=== PATIENT | male | born 1995 | race Hispanic/Latino ===

== ENCOUNTER 2021-03-15 12:42 | Emergency (ER) | payer OTHER, SELFPAY ==
[2021-03-15] VITALS (7 sets, daily range): BP systolic 112–147; BP diastolic 64–83; PULSE 58–71; RESP 14–19; TEMP 36.7; O2SAT 99–100
--- NOTE | 2021-03-15 12:55 | DI.RAD.S_ITS ---
PROCEDURE: XR CHEST 1V INDICATIONS: chest pain TECHNIQUE: One view of the chest was acquired. COMPARISON: None. FINDINGS: Surgical changes and devices: None. Lungs and pleura: Lungs are clear. No pleural effusions or pneumothorax. Mediastinum: Mediastinal contours appear normal. Heart size is normal. Bones and chest wall: No suspicious bony lesions. Overlying soft tissues appear unremarkable. IMPRESSION: No acute pulmonary process. Dictated by: Yarelis Marcano M.D. on 03/15/2021 at 13:27 Approved by: Yarelis Marcano M.D. on 03/15/2021 at 13:27
--- NOTE | 2021-03-15 12:57 | ED.CHESTPAIN ---
HPI - Chest Pain <PARISH Prater - Last Filed: 03/15/21 18:16> General Chief Complaint: Chest Pain Stated Complaint: intermittent left chest pain x2 days Time Seen by Provider: 03/15/21 12:47 Source: patient Mode of arrival: Ambulatory Limitations: no limitations History of Present Illness HPI narrative: The patient is a 25-year-old male current smoker who presents with a chief complaint of left-sided chest pain on and off for the past 2 days. He states this started yesterday after he drank 2 red Bulls. Nothing provokes or alleviates the pain. He has tried some antacid medication. He denies any abdominal pain nausea vomiting or diarrhea. Denies any lightheadedness or dizziness. Denies any shortness of breath, cough or congestion, denies any known COVID exposure. He states that he has not had his COVID vaccinations, though notes that the rest of his family does. He states that the pain in the left side of his chest is shooting and stabbing. He does not have a primary care provider. Related Data Allergies Allergy/AdvReac Type Severity Reaction Status Date / Time aspirin Allergy Verified 03/15/21 13:28 Review of Systems <PARISH Prater - Last Filed: 03/15/21 18:16> Review of Systems Narrative: GENERAL: Denies chills, fatigue, malaise, fever, sweats. HEENT: Denies sinus pain, ear pain, sore throat, difficulty swallowing, dizziness. RESPIRATORY: See HPI CARDIOVASCULAR: See HPI GASTROINTESTINAL: Denies nausea, vomiting, abdominal pain, diarrhea, constipation, melena. : Denies dysuria, frequency, incontinence, hematuria, urinary retention. MUSCULOSKELETAL: denies weakness, joint pain, or bony pain SKIN: Denies rash, skin lesions, or other NEUROLOGIC: Denies weakness, headache, numbness, change in speech, confusion, seizures, incoordination. PSYCHIATRIC: No concerning psychosocial issues. 12 point review of systems is negative except for those stated above Patient History <PARISH Prater - Last Filed: 03/15/21 18:16> Social History Smoking Status: Current every day smoker Exam <PARISH Prater - Last Filed: 03/15/21 18:16> Narrative Exam Narrative: GENERAL: This is a well-nourished, well-developed patient, in no acute distress HEAD: Atraumatic. Normocephalic. No temporal or scalp tenderness. EYES: Pupils equal round and reactive. Extraocular motions intact. No scleral icterus. No injection or drainage. ENT: Nose without bleeding, purulent drainage or septal hematoma. Wearing a mask. Airway patent. NECK: Trachea midline. No JVD or lymphadenopathy. Supple, nontender, no meningeal signs. CARDIOVASCULAR: Regular rate and rhythm. No pain to chest wall palpation RESPIRATORY: Clear to auscultation. Breath sounds equal bilaterally. No wheezes, rales, or rhonchi. No cough. No increased respiratory effort. No accessory muscle use. GASTROINTESTINAL: Abdomen soft, non-tender, nondistended. No hepato-splenomegaly, or palpable masses. No guarding. EXTREMITIES: No clubbing, cyanosis, or edema. No joint tenderness, effusion, or edema noted. BACK: Nontender without deformity or crepitance. No flank tenderness. NEURO: AOx3. SKIN: No rash or erythema on visible skin. No rash on left side of chest wall. Initial Vital Signs Initial Vital Signs: Vital Signs Pulse Rate 66 03/15/21 12:51 Pulse Oximetry 100 03/15/21 12:51 <Saturnino Fortune DO - Last Filed: 03/15/21 18:19> Initial Vital Signs Initial Vital Signs: Vital Signs Pulse Rate 66 03/15/21 12:51 Pulse Oximetry 100 03/15/21 12:51 Scores <ANA Prater - Last Filed: 03/15/21 18:16> GCS Aromas coma scale eye opening: Spontaneous Sylvester coma scale verbal response: Orientated Sylvester coma scale motor response: Obey commands Sylvester coma scale total score: 15 HEART Score Heart Score history: Slightly Suspicious Heart Score EKG: Normal Heart Score Age: < 45 years old Heart Score risk factors: No known risk factors Heart Score troponin: < or = to normal limit Heart Score Total: 0 <Saturnino Fortune DO - Last Filed: 03/15/21 18:19> GCS Aromas coma scale total score: 15 HEART Score Heart Score Total: 0 Course <ANA Prater - Last Filed: 03/15/21 18:16> Orders Ordered: ED Orders 03/15/21 12:53 EKG-12 Lead Stat 03/15/21 12:55 XR chest 1V Stat 03/15/21 12:57 COVID19 -Nasal swab/Pre-Proc Stat Complete Blood Count AUTO DIFF Stat Comprehensive Metabolic Panel Stat D Dimer Stat Lipase Stat NT-proBNP (BNP-Adult 18+) Stat Troponin & CK Cardiac Panel Stat 03/15/21 13:20 Urine Drug Screen, Rapid Stat Discontinued Medications Sodium Chloride (Normal Saline 0.9%) 1,000 mls @ 1,000 mls/hr IV BOLUS ONE Stop: 03/15/21 13:53 Last Infusion: 03/15/21 14:33 Dose: 0 mls/hr Documented by: Admin: 03/15/21 13:28 Dose: 1,000 mls/hr Documented by: KAMRAN Ketorolac Tromethamine (Ketorolac 30 Mg/Ml Vial) 30 mg IM NOW ONE Stop: 03/15/21 14:23 Last Admin: 03/15/21 14:26 Dose: 30 mg Documented by: KAMRAN Lidocaine (Lidocaine Patch 1 Each Adh..Patch) 1 each TOP NOW ONE Stop: 03/15/21 14:23 Last Admin: 03/15/21 14:26 Dose: 1 each Documented by: KAMRAN Vital Signs Vital signs: Vital Signs - 8 hr 03/15/21 12:51 03/15/21 12:52 03/15/21 13:00 Temperature 98.0 F Pulse Rate 66 71 62 Respiratory Rate 16 19 Blood Pressure 147/72 H 140/65 Pulse Oximetry 100 99 99 03/15/21 13:30 03/15/21 14:00 03/15/21 14:29 Temperature Pulse Rate 59 L 60 58 L Respiratory Rate 18 18 14 Blood Pressure 122/64 112/83 Pulse Oximetry 99 99 100 03/15/21 14:30 Temperature Pulse Rate Respiratory Rate Blood Pressure 118/80 Pulse Oximetry <Saturnino Fortune, DO - Last Filed: 03/15/21 18:19> Orders Ordered: ED Orders 03/15/21 12:53 EKG-12 Lead Stat 03/15/21 12:55 XR chest 1V Stat 03/15/21 12:57 COVID19 -Nasal swab/Pre-Proc Stat Complete Blood Count AUTO DIFF Stat Comprehensive Metabolic Panel Stat D Dimer Stat Lipase Stat NT-proBNP (BNP-Adult 18+) Stat Troponin & CK Cardiac Panel Stat 03/15/21 13:20 Urine Drug Screen, Rapid Stat Discontinued Medications Sodium Chloride (Normal Saline 0.9%) 1,000 mls @ 1,000 mls/hr IV BOLUS ONE Stop: 03/15/21 13:53 Last Infusion: 03/15/21 14:33 Dose: 0 mls/hr Documented by: Admin: 03/15/21 13:28 Dose: 1,000 mls/hr Documented by: KAMRAN Ketorolac Tromethamine (Ketorolac 30 Mg/Ml Vial) 30 mg IM NOW ONE Stop: 03/15/21 14:23 Last Admin: 03/15/21 14:26 Dose: 30 mg Documented by: KAMRAN Lidocaine (Lidocaine Patch 1 Each Adh..Patch) 1 each TOP NOW ONE Stop: 03/15/21 14:23 Last Admin: 03/15/21 14:26 Dose: 1 each Documented by: KAMRAN Vital Signs Vital signs: Vital Signs - 8 hr 03/15/21 12:51 03/15/21 12:52 03/15/21 13:00 Temperature 98.0 F Pulse Rate 66 71 62 Respiratory Rate 16 19 Blood Pressure 147/72 H 140/65 Pulse Oximetry 100 99 99 03/15/21 13:30 03/15/21 14:00 03/15/21 14:29 Temperature Pulse Rate 59 L 60 58 L Respiratory Rate 18 18 14 Blood Pressure 122/64 112/83 Pulse Oximetry 99 99 100 03/15/21 14:30 Temperature Pulse Rate Respiratory Rate Blood Pressure 118/80 Pulse Oximetry MDM - Chest Pain <PARISH Prater - Last Filed: 03/15/21 18:16> Lab Data Result diagrams: 03/15/21 12:57 03/15/21 12:57 Labs: Lab Results 03/15/21 03/15/21 03/15/21 Range/Units 12:57 12:57 12:57 WBC 10.0 (4.5-11.0) X10^3/uL RBC 5.56 (4.5-5.9) X10^6/uL Hgb 16.0 (13.5-17.5) g/dL Hct 47.4 (41-53) % MCV 85.3 (80-100) fL MCH 28.7 (26-34) PG MCHC 33.6 (30-36) % RDW 13.7 (11.6-14.8) % Plt Count 234 (150-400) X10^3/uL Neut % (Auto) 69.4 (50-75) % Lymph % (Auto) 22.2 L (25-40) % Lawrence % (Auto) 5.7 (3-14) % Eos % (Auto) 2.1 (2-4) % Baso % (Auto) 0.6 (0-2) % Neut # (Auto) 6900 (9084-5347) /uL Lymph # (Auto) 2200 (0620-8163) /uL Lawrence # (Auto) 600 (0-900) /uL Eos # (Auto) 200 (0-450) /uL Baso # (Auto) 100 (0-100) /uL D-Dimer < 200 (<230) ng/mL Sodium (137-145) mmol/L Potassium (3.4-5.1) mmol/L Chloride (98-107) mmol/L Carbon Dioxide (22-32) mmol/L BUN (9-20) mg/dL Creatinine (0.66-1.25) mg/dL Estimated GFR (>60) mL/min BUN/Creatinine Ratio (6-22) Glucose (70-100) mg/dL Calcium (8.4-10.2) mg/dL Total Bilirubin (0.2-1.3) mg/dL AST (17-59) IU/L ALT (<50) IU/L Alkaline Phosphatase (38-126) U/L Total Creatine Kinase (55-170) U/L CK-MB (CK-2) (<2.37) ng/mL CK-MB (CK-2) Rel Index (1.5-5.0) % Troponin I (0.01-0.034) ng/mL NT-Pro-B Natriuret Pep 38 (<125) pg/mL Total Protein (6.3-8.2) g/dL Albumin (3.5-5.0) g/dL Globulin (1.7-4.1) g/dL Albumin/Globulin Ratio (1.0-2.8) Lipase (23-300) U/L U Opiates 300ng/mL cut (Negative) Ur Oxycodone Screen (Negative) Urine Methadone Screen (Negative) Ur Barbiturates Screen (Negative) U Tricyclic Antidepress (Negative) Ur Phencyclidine Scrn (Negative) Ur Amphetamines Screen (Negative) U Methamphetamines Scrn (Negative) Ur MDMA Scrn (Ecstasy) (Negative) U Benzodiazepines Scrn (Negative) Urine Cocaine Screen (Negative) U Marijuana (THC) Screen (Negative) SARS-CoV-2 (PCR) (Negative) 03/15/21 03/15/21 03/15/21 Range/Units 12:57 12:57 13:20 WBC (4.5-11.0) X10^3/uL RBC (4.5-5.9) X10^6/uL Hgb (13.5-17.5) g/dL Hct (41-53) % MCV (80-100) fL MCH (26-34) PG MCHC (30-36) % RDW (11.6-14.8) % Plt Count (150-400) X10^3/uL Neut % (Auto) (50-75) % Lymph % (Auto) (25-40) % Lawrence % (Auto) (3-14) % Eos % (Auto) (2-4) % Baso % (Auto) (0-2) % Neut # (Auto) (8514-0749) /uL Lymph # (Auto) (9612-0302) /uL Lawrence # (Auto) (0-900) /uL Eos # (Auto) (0-450) /uL Baso # (Auto) (0-100) /uL D-Dimer (<230) ng/mL Sodium 140 (137-145) mmol/L Potassium 4.0 (3.4-5.1) mmol/L Chloride 106 (98-107) mmol/L Carbon Dioxide 28 (22-32) mmol/L BUN 19 (9-20) mg/dL Creatinine 0.88 (0.66-1.25) mg/dL Estimated GFR > 60.0 (>60) mL/min BUN/Creatinine Ratio 21.6 (6-22) Glucose 93 (70-100) mg/dL Calcium 9.3 (8.4-10.2) mg/dL Total Bilirubin 0.5 (0.2-1.3) mg/dL AST 26 (17-59) IU/L ALT 24 (<50) IU/L Alkaline Phosphatase 55 (38-126) U/L Total Creatine Kinase 102 (55-170) U/L CK-MB (CK-2) 1.15 (<2.37) ng/mL CK-MB (CK-2) Rel Index 1.1 L (1.5-5.0) % Troponin I < 0.012 (0.01-0.034) ng/mL NT-Pro-B Natriuret Pep (<125) pg/mL Total Protein 7.5 (6.3-8.2) g/dL Albumin 4.6 (3.5-5.0) g/dL Globulin 2.9 (1.7-4.1) g/dL Albumin/Globulin Ratio 1.6 (1.0-2.8) Lipase 60 (23-300) U/L U Opiates 300ng/mL cut Negative (Negative) Ur Oxycodone Screen Negative (Negative) Urine Methadone Screen Negative (Negative) Ur Barbiturates Screen Negative (Negative) U Tricyclic Antidepress Negative (Negative) Ur Phencyclidine Scrn Negative (Negative) Ur Amphetamines Screen Negative (Negative) U Methamphetamines Scrn Negative (Negative) Ur MDMA Scrn (Ecstasy) Negative (Negative) U Benzodiazepines Scrn Negative (Negative) Urine Cocaine Screen Negative (Negative) U Marijuana (THC) Screen Positive H (Negative) SARS-CoV-2 (PCR) Negative (Negative) Urine Dip Bedside Urine Glucose Negative Bedside Urine Bilirubin - Negative Bedside Urine Ketone - Negative Urine Specific Vernon 1.025 Bedside Urine Occult Blood - Negative Bedside Urine pH 6.0 Bedside Urine Protein - Negative Bedside Urine Urobilinogen - Negative Bedside Urine Nitrite - Negative Bedside Urine Leukocytes - Negative Esterase Imaging Data Chest x-ray: Radiologist's Impression: [address] [place] [id number] XRay Report Signed Patient: Emily Yarbrough Jr MR#: [id number] : 1995 Acct:[id number] Age/Sex: 25 / M Date of Service: 03/15/21 Loc: ED Accession Number: [id number] ?? Procedure: XR chest 1V Ordering Provider: Marah Haynes PROCEDURE:? XR CHEST 1V ? INDICATIONS:? chest pain ? TECHNIQUE:? One view of the chest was acquired.? ? COMPARISON:? None. ? FINDINGS:? ? Surgical changes and devices:? None.? ? Lungs and pleura:? Lungs are clear.? No pleural effusions or pneumothorax.? ? Mediastinum:? Mediastinal contours appear normal.? Heart size is normal.? ? Bones and chest wall:? No suspicious bony lesions.? Overlying soft tissues appear unremarkable.? ? IMPRESSION:? No acute pulmonary process. ? ? Dictated by: Yarelis Marcano M.D. on 03/15/2021 at 13:27 ? ? Approved by: Yarelis Marcano M.D. on 03/15/2021 at 13:27?? ECG Data Attestation: I personally reviewed and interpreted this ECG as follows: Interpretation: Sinus bradycardia. Ventricular rate 57. P.r. interval 52. QRS 82. Viewed by Dr Fortune MDM Narrative Medical decision making narrative: The patient is a 25-year-old male who presents with a chief complaint of occasional shooting left-sided chest pain for the past few days after drinking multiple red Bulls. He is workup overall today is negative, with a negative COVID, normal chest x-ray, negative troponin, negative D-dimer. Been pain-free throughout his stay in the emergency department. We discussed the possibility of GERD, though his pain is on the left side and he has no pain abdominal palpation. I did encourage him to eat a mindful diet avoiding citrus and spicy foods. 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 Encouraged to follow up with primary care provider in the next few days. Discussed at length coming back to the ER for acute concerns. Patient has no questions or concerns upon discharge states understanding return precautions as well as follow-up care. He has been hemodynamically stable, well-appearing and nontoxic throughout his stay in the ER. <Saturnino Fortune, DO - Last Filed: 03/15/21 18:19> Lab Data Labs: Lab Results 03/15/21 03/15/21 03/15/21 Range/Units 12:57 12:57 12:57 WBC 10.0 (4.5-11.0) X10^3/uL RBC 5.56 (4.5-5.9) X10^6/uL Hgb 16.0 (13.5-17.5) g/dL Hct 47.4 (41-53) % MCV 85.3 (80-100) fL MCH 28.7 (26-34) PG MCHC 33.6 (30-36) % RDW 13.7 (11.6-14.8) % Plt Count 234 (150-400) X10^3/uL Neut % (Auto) 69.4 (50-75) % Lymph % (Auto) 22.2 L (25-40) % Lawrence % (Auto) 5.7 (3-14) % Eos % (Auto) 2.1 (2-4) % Baso % (Auto) 0.6 (0-2) % Neut # (Auto) 6900 (3379-7803) /uL Lymph # (Auto) 2200 (2769-5977) /uL Lawrence # (Auto) 600 (0-900) /uL Eos # (Auto) 200 (0-450) /uL Baso # (Auto) 100 (0-100) /uL D-Dimer < 200 (<230) ng/mL Sodium (137-145) mmol/L Potassium (3.4-5.1) mmol/L Chloride (98-107) mmol/L Carbon Dioxide (22-32) mmol/L BUN (9-20) mg/dL Creatinine (0.66-1.25) mg/dL Estimated GFR (>60) mL/min BUN/Creatinine Ratio (6-22) Glucose (70-100) mg/dL Calcium (8.4-10.2) mg/dL Total Bilirubin (0.2-1.3) mg/dL AST (17-59) IU/L ALT (<50) IU/L Alkaline Phosphatase (38-126) U/L Total Creatine Kinase (55-170) U/L CK-MB (CK-2) (<2.37) ng/mL CK-MB (CK-2) Rel Index (1.5-5.0) % Troponin I (0.01-0.034) ng/mL NT-Pro-B Natriuret Pep 38 (<125) pg/mL Total Protein (6.3-8.2) g/dL Albumin (3.5-5.0) g/dL Globulin (1.7-4.1) g/dL Albumin/Globulin Ratio (1.0-2.8) Lipase (23-300) U/L U Opiates 300ng/mL cut (Negative) Ur Oxycodone Screen (Negative) Urine Methadone Screen (Negative) Ur Barbiturates Screen (Negative) U Tricyclic Antidepress (Negative) Ur Phencyclidine Scrn (Negative) Ur Amphetamines Screen (Negative) U Methamphetamines Scrn (Negative) Ur MDMA Scrn (Ecstasy) (Negative) U Benzodiazepines Scrn (Negative) Urine Cocaine Screen (Negative) U Marijuana (THC) Screen (Negative) SARS-CoV-2 (PCR) (Negative) 03/15/21 03/15/21 03/15/21 Range/Units 12:57 12:57 13:20 WBC (4.5-11.0) X10^3/uL RBC (4.5-5.9) X10^6/uL Hgb (13.5-17.5) g/dL Hct (41-53) % MCV (80-100) fL MCH (26-34) PG MCHC (30-36) % RDW (11.6-14.8) % Plt Count (150-400) X10^3/uL Neut % (Auto) (50-75) % Lymph % (Auto) (25-40) % Lawrence % (Auto) (3-14) % Eos % (Auto) (2-4) % Baso % (Auto) (0-2) % Neut # (Auto) (1342-9409) /uL Lymph # (Auto) (1027-0651) /uL Lawrence # (Auto) (0-900) /uL Eos # (Auto) (0-450) /uL Baso # (Auto) (0-100) /uL D-Dimer (<230) ng/mL Sodium 140 (137-145) mmol/L Potassium 4.0 (3.4-5.1) mmol/L Chloride 106 (98-107) mmol/L Carbon Dioxide 28 (22-32) mmol/L BUN 19 (9-20) mg/dL Creatinine 0.88 (0.66-1.25) mg/dL Estimated GFR > 60.0 (>60) mL/min BUN/Creatinine Ratio 21.6 (6-22) Glucose 93 (70-100) mg/dL Calcium 9.3 (8.4-10.2) mg/dL Total Bilirubin 0.5 (0.2-1.3) mg/dL AST 26 (17-59) IU/L ALT 24 (<50) IU/L Alkaline Phosphatase 55 (38-126) U/L Total Creatine Kinase 102 (55-170) U/L CK-MB (CK-2) 1.15 (<2.37) ng/mL CK-MB (CK-2) Rel Index 1.1 L (1.5-5.0) % Troponin I < 0.012 (0.01-0.034) ng/mL NT-Pro-B Natriuret Pep (<125) pg/mL Total Protein 7.5 (6.3-8.2) g/dL Albumin 4.6 (3.5-5.0) g/dL Globulin 2.9 (1.7-4.1) g/dL Albumin/Globulin Ratio 1.6 (1.0-2.8) Lipase 60 (23-300) U/L U Opiates 300ng/mL cut Negative (Negative) Ur Oxycodone Screen Negative (Negative) Urine Methadone Screen Negative (Negative) Ur Barbiturates Screen Negative (Negative) U Tricyclic Antidepress Negative (Negative) Ur Phencyclidine Scrn Negative (Negative) Ur Amphetamines Screen Negative (Negative) U Methamphetamines Scrn Negative (Negative) Ur MDMA Scrn (Ecstasy) Negative (Negative) U Benzodiazepines Scrn Negative (Negative) Urine Cocaine Screen Negative (Negative) U Marijuana (THC) Screen Positive H (Negative) SARS-CoV-2 (PCR) Negative (Negative) Urine Dip Bedside Urine Glucose Negative Bedside Urine Bilirubin - Negative Bedside Urine Ketone - Negative Urine Specific Vernon 1.025 Bedside Urine Occult Blood - Negative Bedside Urine pH 6.0 Bedside Urine Protein - Negative Bedside Urine Urobilinogen - Negative Bedside Urine Nitrite - Negative Bedside Urine Leukocytes - Negative Esterase Discharge Plan Departure Patient Disposition: Home Clinical Impression: Chest pain Qualifiers: Chest pain type: unspecified Qualified Code(s): R07.9 - Chest pain, unspecified Instructions: DI for Atypical Chest Pain, DI for Chest Pain, GERD Diet Activity Restrictions/Additional Instructions: Thank you for trusting us with your care today. As discussed, your workup today resulted very reassuringly. Your chest x-ray is no acute findings, there is no evidence of pneumonia, no evidence of heart attack, no evidence of blood clot in your lungs. Your coronavirus test resulted negative. You can use [id number] measures as needed and able for pain, please avoid drinking Red Bulls and energy drinks as this started after you drink two red Bulls. I encourage you to eat a GERD appropriate diet. I have included information on this. As discussed, please come back to emergency department for any acute concerns. Referrals: [facility] [Outside] <Saturnino Fortune, DO - Last Filed: 03/15/21 18:19> [facility] Dr Fortune Co-Sign Statement: I was available for consultation during this patient's emergency department visit. This chart is signed by myself for administrative purposes only. I did not have direct contact with this patient during this visit. They were seen independently by the APC.
[2021-03-15 13:06] LABS: Add Manual Diff / Slide Review NO; Basophils Absolute Auto 100 /uL (0-100); Basophils Percent Auto 0.6 % (0-2); Eosinophils Absolute Auto 200 /uL (0-450); Eosinophils Percent Auto 2.1 % (2-4); Hematocrit 47.4 % (41-53); Lymphocytes Absolute Auto 2200 /uL (1100-4500); Lymphocytes Percent Auto 22.2 % (25-40); Mean Corpuscular HGB Conc 33.6 % (30-36); Mean Corpuscular Hemoglobin 28.7 PG (26-34); Mean Corpuscular Volume 85.3 fL (80-100); Monocytes Absolute Auto 600 /uL (0-900); Monocytes Percent Auto 5.7 % (3-14); Neutrophils Absolute Auto 6900 /uL (1500-7000); Neutrophils Percent Auto 69.4 % (50-75); Platelet Count 234 X10^3/uL (150-400); Red Blood Cell Count 5.56 X10^6/uL (4.5-5.9); Red Cell Distribution Width 13.7 % (11.6-14.8)
[2021-03-15 13:19] LABS: D Dimer < 200 ng/mL (<230)
[2021-03-15 13:21] LABS: Alanine Aminotransferase 24 IU/L (<50); Albumin 4.6 g/dL (3.5-5.0); Albumin Globulin Ratio 1.6 (1.0-2.8); Alkaline Phosphatase 55 U/L (38-126); Aspartate Aminotransferase 26 IU/L (17-59); BUN Creatinine Ratio 21.6 (6-22); Bilirubin Total 0.5 mg/dL (0.2-1.3); Blood Urea Nitrogen 19 mg/dL (9-20); Calcium 9.3 mg/dL (8.4-10.2); Carbon Dioxide 28 mmol/L (22-32); Chloride 106 mmol/L (98-107); Creatine Kinase 102 U/L (55-170); Estimated Glomerular Filt Rate > 60.0 mL/min (>60); Globulin 2.9 g/dL (1.7-4.1); Glucose 93 mg/dL (70-100); HEMOLYSIS 19 (0-50); Lipase 60 U/L (23-300); Sodium 140 mmol/L (137-145); Total Protein 7.5 g/dL (6.3-8.2)
[2021-03-15 13:26] LABS: COVID19 -Nasal RAPID Negative (Negative)
[2021-03-15] MEDS: SODIUM CHLORIDE 0.9% 1,000 ML 1000 ML IV (13:28)
[2021-03-15 13:30] LABS: NT-proBNP (BNP-Adult 18+) 38 pg/mL (<125)
[2021-03-15 13:32] LABS: Troponin I < 0.012 ng/mL (0.01-0.034)
[2021-03-15 13:36] LABS: CKMB % Relative Index 1.1 % (1.5-5.0); Creatine Kinase MB 1.15 ng/mL (<2.37)
[2021-03-15 13:44] LABS: UR Morphine/Opiate cutoff 300 Negative (Negative); Ur Creatinine Normal (Normal); Ur Specific Gravity Normal (Normal); Urine Amphetamines Negative (Negative); Urine Barbiturates Negative (Negative); Urine Benzodiazepines Negative (Negative); Urine Cocaine Negative (Negative); Urine MDMA Negative (Negative); Urine Methadone Negative (Negative); Urine Methamphetamines Negative (Negative); Urine Oxycodone Negative (Negative); Urine Phencyclidine Negative (Negative); Urine Tetrahydrocannabinol Positive (Negative); Urine Tricyclic Antidepressant Negative (Negative); Urine pH Normal (Normal)
[2021-03-15] MEDS: LIDOCAINE PATCH 1 EACH ADH..PATCH TOP (14:26)
[2021-03-15] MEDS: KETOROLAC 30 MG/ML VIAL IM (14:26)
== END 2021-03-15 15:04 | disposition home or self-care (01) ==
PROVIDERS: Emergency Provider Nurse Practitioner Family
DX: R07.9 Chest pain, unspecified (principal); Z20.822 Contact with and (suspected) exposure to COVID-19; R00.1 Bradycardia, unspecified
CPT/HCPCS: 36415; 71045; 80053; 80305; 81003; 82550; 82553; 83690; 83880; 84484; 85025; 85379; 87635; 93005; 93010; 96360; 96361; 96372; 96374; 99284; C9803; J1885